=== PATIENT | male | born 2000 | race Caucasian/White ===

== ENCOUNTER 2022-03-24 08:35 | Emergency (ER) | payer MEDICAID ==
[~2022-03-24] VITALS: Ht 172.7 cm; Wt 73.0 kg
[2022-03-24] MEDS ORDERED: TETANUS, DIPHTHERIA, PERTUSSIS VAC/PF 0.5ML (>10YR OLD) IM ONE (09:30)
[2022-03-24] MEDS ORDERED: LIDOCAINE HCL/EPINEPHRINE 1%-EPI 1:100,000 20 ML VIAL INFIL ONE (10:00)
[2022-03-24] MEDS ORDERED: CEFTRIAXONE SODIUM 1 G/VIAL IM ONE (10:45)
[2022-03-24 12:36] VITALS: BP 124/78
== END 2022-03-24 12:41 | disposition home or self-care (01) ==
LOC: ER 08:35
DX: S81.012A Laceration without foreign body, left knee, initial encounter (principal); S80.211A Abrasion, right knee, initial encounter; S30.811A Abrasion of abdominal wall, initial encounter; X99.1XXA Assault by knife, initial encounter; Y92.018 Other place in single-family (private) house as the place of occurrence of the external cause; Y07.11 Biological father, perpetrator of maltreatment and neglect
CPT/HCPCS: 12002; 73560; 90471; 90715; 96372; 99284; J0696; J3490

== ENCOUNTER 2022-03-28 11:51 | Emergency (ER) | payer MEDICAID ==
[~2022-03-28] VITALS: Ht 165.1 cm; Wt 102.0 kg
[2022-03-28 11:57] VITALS: BP 115/58
== END 2022-03-28 15:31 | disposition home or self-care (01) ==
LOC: ER 12:45
DX: S81.812D Laceration without foreign body, left lower leg, subsequent encounter (principal); Z48.02 Encounter for removal of sutures; X58.XXXD Exposure to other specified factors, subsequent encounter
CPT/HCPCS: 99281